=== PATIENT | male | born 1950 | race Caucasian/White ===

== ENCOUNTER 2022-05-26 07:24 | Day surgery (SDC) | payer MEDICARE, OTHER ==
[2022-05-26] MEDS ORDERED: Propofol 200 MG/20 ML SDV ONE ×2 (07:27→09:03)
[2022-05-26] MEDS ORDERED: Midazolam 1 MG/ML 2 ML SDV ONE (07:27)
[2022-05-26] MEDS ORDERED: Lactated Ringers 1,000 ML IV SCH (08:30)
== END 2022-05-26 10:44 | disposition home or self-care (01) ==
LOC: JP.SDS 07:24
PROVIDERS: ATTEND Family Medicine
DX: Z12.11 Encounter for screening for malignant neoplasm of colon (principal); D12.2 Benign neoplasm of ascending colon; I10 Essential (primary) hypertension; E78.5 Hyperlipidemia, unspecified; E66.9 Obesity, unspecified; Z68.32 Body mass index [BMI] 32.0-32.9, adult; Z91.041 Radiographic dye allergy status
CPT/HCPCS: 45384; 88305; J2250; J2704; J7120

== ENCOUNTER 2025-04-20 13:03 | Emergency (ER) | payer MEDICARE ==
[2025-04-20 13:29] LABS: APPEARANCE,URINE SLIGHTLY CLOUDY (CLEAR); GLUCOSE,URINE NEGATIVE (NEGATIVE); OCCULT BLOOD,URINE LARGE (NEGATIVE)
[2025-04-20 13:38] LABS: SQUAMOUS EPITHELIAL CELLS,UR RARE /HPF; UROTHELIAL CELLS,URINE NOT SEEN /HPF
[2025-04-20 14:46] LABS: A/G RATIO 0.7 (1.2-2.2); ALANINE AMINOTRANSFERASE,ALT 89 U/L (12-78); ASPARTATE AMNIOTRANSFERASE,AST 131 U/L (15-37); BILIRUBIN TOTAL 1.1 mg/dL (0.2-1.0); BLOOD UREA NITROGEN,BUN 34 mg/dL (7-18); CARBON DIOXIDE,CO2 22 mmol/L (21-32); CHLORIDE,CL 98 mmol/L (100-108); CREATININE 1.1 mg/dL (0.8-1.3); EST CRCL DRUG DOSING (CG) 64.65 mL/min; ESTIMATED GFR 71 mL/min (>60); GLUCOSE RANDOM 111 mg/dL (74-106); POTASSIUM,K 3.6 mmol/L (3.6-5.2); PROTEIN TOTAL,TP 7.8 g/dL (6.4-8.2); SODIUM,NA 135 mmol/L (140-148)
== END 2025-04-20 15:59 | disposition home or self-care (01) ==
LOC: JP.ED 13:03
DX: N39.0 Urinary tract infection, site not specified (principal); E78.00 Pure hypercholesterolemia, unspecified; Z91.041 Radiographic dye allergy status; Z79.82 Long term (current) use of aspirin; Z79.899 Other long term (current) drug therapy
CPT/HCPCS: 36415; 80053; 81001; 87086; 87088; 87186; 99284

== ENCOUNTER 2025-06-02 09:35 | Emergency (ER) | payer MEDICARE ==
[2025-06-02 10:48] LABS: APPEARANCE,URINE TURBID (CLEAR); GLUCOSE,URINE NEGATIVE (NEGATIVE); OCCULT BLOOD,URINE LARGE (NEGATIVE)
[2025-06-02 10:49] LABS: SQUAMOUS EPITHELIAL CELLS,UR NOT SEEN /HPF
[2025-06-02] MEDS ORDERED: Sodium Chloride 0.9% 10 ML Syringe FLUSH PRN (11:04)
[2025-06-02 11:17] LABS: BASOPHILS PERCENT AUTO 0.3 % (0.1-1.3); EOSINOPHILS ABSOLUTE AUTO 0.03 K/uL (0.00-0.40); EOSINOPHILS PERCENT AUTO 0.5 % (0.0-5.4); IMMATURE GRAN PERCENT AUTO 0.3 % (0.0-0.7); LYMPHOCYTES ABSOLUTE AUTO 1.15 K/uL (0.8-3.3); LYMPHOCYTES PERCENT AUTO 19.9 % (11.4-47.7); MONOCYTES ABSOLUTE AUTO 0.46 K/uL (0.20-0.90); MONOCYTES PERCENT AUTO 8.0 % (3.3-12.6); NEUTROPHILS ABSOLUTE AUTO 4.09 K/uL (1.0-7.6); NEUTROPHILS PERCENT AUTO 71.0 % (40.0-78.1); PLATELET COUNT,PLT 310 K/uL (130-375); RED BLOOD CELL COUNT 4.77 M/uL (4.14-5.76); WHITE BLOOD CELL COUNT,WBC 5.8 K/uL (3.2-11.0)
[2025-06-02] MEDS ORDERED: Iopamidol 612 MG/ML 100 ML Bottle IV PRN (11:18)
[2025-06-02] MEDS: diphenhydrAMINE 50 MG/ML SDV IVPUSH ONE (11:19)
[2025-06-02 11:20] LABS: BASOPHILS ABSOLUTE AUTO 0.02 K/uL (0.00-0.10); IMMATURE GRAN ABSOLUTE AUTO 0.02 K/uL (0.00-0.23)
[2025-06-02 11:36] LABS: INR 1.1; PTT,PARTIAL THROMBOPLSTIN TIME 26.5 sec (21.8-27.3)
[2025-06-02] MEDS: Sodium Chloride 0.9% 10 ML Syringe FLUSH ONE (11:36)
[2025-06-02 11:38] LABS: A/G RATIO 1.1 (1.2-2.2); ALANINE AMINOTRANSFERASE,ALT 32 U/L (12-78); ASPARTATE AMNIOTRANSFERASE,AST 23 U/L (15-37); BILIRUBIN TOTAL 1.4 mg/dL (0.2-1.0); BLOOD UREA NITROGEN,BUN 12 mg/dL (7-18); CARBON DIOXIDE,CO2 27 mmol/L (21-32); CHLORIDE,CL 103 mmol/L (100-108); CREATININE 0.7 mg/dL (0.8-1.3); EST CRCL DRUG DOSING (CG) 101.60 mL/min; ESTIMATED GFR 98 mL/min (>60); GLUCOSE RANDOM 107 mg/dL (74-106); POTASSIUM,K 4.1 mmol/L (3.6-5.2); PROTEIN TOTAL,TP 7.8 g/dL (6.4-8.2); SODIUM,NA 140 mmol/L (140-148)
== END 2025-06-02 15:25 | disposition home or self-care (01) ==
LOC: JP.ED 09:35
DX: N32.9 Bladder disorder, unspecified (principal); I10 Essential (primary) hypertension; E78.00 Pure hypercholesterolemia, unspecified; Z79.899 Other long term (current) drug therapy; Z79.82 Long term (current) use of aspirin; Z91.041 Radiographic dye allergy status
CPT/HCPCS: 36415; 74178; 80053; 81001; 83605; 85025; 85610; 85730; 96374; 99284; J1200; J7030